=== PATIENT | female | born 1965 | race Caucasian/White ===

== ENCOUNTER 2019-07-14 18:28 | Observation (INO) ==
[2019-07-14] MEDS ORDERED: 0.9 % Sodium Chloride 1,000 ML IVC ONE (18:41)
[2019-07-14 18:58] LABS: Hematocrit 38.7 % (35.3-44.9); Hemoglobin 13.5 g/dL (11.5-15.4); Mean Corpuscular HGB Conc 34.9 g/dL (31.6-35.5); Mean Platelet Volume 12.2 fL (9.4-12.4); Platelet Count 282 K/mcL (140-400); Red Blood Count 4.35 M/mcL (3.82-4.97); Red Cell Distribution Width 13.4 % (11.5-14.5); White Blood Count 8.8 K/mcL (4.3-11.1)
[2019-07-14 19:08] LABS: INR 0.9; Prothrombin Time 10.1 Seconds (9.4-12.1)
[2019-07-14 19:17] LABS: BUN/Creatinine Ratio 23 (6-26); Blood Urea Nitrogen 19 mg/dL (6-20); Carbon Dioxide 30 mEq/L (23-29); Chloride 97 mEq/L (98-107); Glucose 108 mg/dL (70-105); Osmolality,Calculated 295 (280-300); Potassium 3.6 mEq/L (3.5-5.1); Sodium 141 mEq/L (136-145); Troponin I < 0.03 ng/mL (< 0.04); eGFR For African Americans > 60 (> 60); eGFR For Non-African Americans > 60 (> 60)
[2019-07-14] MEDS ORDERED: Aspirin 325 MG TABLET PO ONE (20:17)
[2019-07-15] MEDS ORDERED: Naloxone 0.4 MG/ML INJ IVP PRN (02:33)
[2019-07-15] MEDS ORDERED: Furosemide 20 MG TABLET PO SCH (02:45)
[2019-07-15 06:47] LABS: Hematocrit 34.3 % (35.3-44.9); Mean Corpuscular HGB Conc 33.5 g/dL (31.6-35.5); Mean Corpuscular Hemoglobin 31.3 pg (28.0-33.3); Mean Corpuscular Volume 93.2 fL (83.0-100.0); Mean Platelet Volume 12.4 fL (9.4-12.4); Platelet Count 220 K/mcL (140-400); Red Blood Count 3.68 M/mcL (3.82-4.97); Red Cell Distribution Width 13.3 % (11.5-14.5); White Blood Count 6.2 K/mcL (4.3-11.1)
[2019-07-15 06:48] LABS: Hemoglobin 11.5 g/dL (11.5-15.4)
[2019-07-15 07:07] LABS: BUN/Creatinine Ratio 27 (6-26); Blood Urea Nitrogen 17 mg/dL (6-20); Carbon Dioxide 30 mEq/L (23-29); Chloride 102 mEq/L (98-107); Chol/HDL Ratio 7.5 (0-4.9); Cholesterol 264 mg/dL (< 200); Glucose 99 mg/dL (70-105); HDL Cholesterol 35 mg/dL (40-59); LDL Cholesterol,Calculated 156 mg/dL (0-99); Magnesium 2.1 mg/dL (1.6-2.6); Osmolality,Calculated 292 (280-300); Phosphorous 3.3 mg/dL (2.7-4.5); Potassium 3.2 mEq/L (3.5-5.1); Sodium 140 mEq/L (136-145); Triglycerides 363 mg/dL (< 150); eGFR For African Americans > 60 (> 60); eGFR For Non-African Americans > 60 (> 60)
[2019-07-15] MEDS ORDERED: Furosemide 40 MG TABLET PO SCH (09:00)
[2019-07-15] MEDS ORDERED: Isovue-370 500 ML BOTTLE IVP ONE (10:33)
[2019-07-15 16:41] VITALS: BP 150/83
== END 2019-07-15 17:50 | disposition home or self-care (01) ==
LOC: 3BNU 18:28 → EMEROOARM 18:28 → SUATTDRO 21:37 → 3BNU 22:18
PROVIDERS: ADMIT Family Medicine; ATTEND Internal Medicine